=== PATIENT | female | born 2005 | race Caucasian/White ===

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

== ENCOUNTER 2024-03-06 21:39 | Emergency (ER) | payer MEDICAID, OTHER ==
[~2024-03-06] VITALS: Ht 160 cm; Wt 58.0 kg
[2024-03-06 21:52] VITALS: O2SAT 98
[2024-03-07 00:48] VITALS: TEMP 97.8
[2024-03-07] MEDS: ACETAMINOPHEN 500MG TABLET PO ONE (00:48)
[2024-03-07] MEDS: DEXAMETHASONE 10 MG/ML VIAL IM ONE (00:49)
[2024-03-07] MEDS: METOCLOPRAMIDE HCL 10MG/2ML VIAL IM ONE (00:49)
[2024-03-07 01:33] VITALS: BP 110/80; PULSE 70; RESP 15
== END 2024-03-07 01:34 | disposition home or self-care (01) ==
LOC: ER 21:39
DX: R51.9 Headache, unspecified (principal)
CPT/HCPCS: 99284; 81025; 96372; J1100; J2765